=== PATIENT | male | born 1980 ===

== ENCOUNTER 2016-11-13 07:48 | Emergency (ER) | payer OTHER ==
[2016-11-13 07:53] VITALS: BP 117/70
[2016-11-13 07:54] VITALS: BMI 30.9
[2016-11-13 08:01] VITALS: RESP 20; O2SAT 98
--- NOTE | 2016-11-13 08:08 | ED PDOC ---
Lower Extremity Pain/Injury Time Seen by Provider: 11/13/16 07:52 Chief Complaint (Nursing): Lower Extremity Problem/Injury Chief Complaint (Provider): Knee pain History Per: Patient History/Exam Limitations: no limitations Onset/Duration Of Symptoms: Days (1.5 weeks) Current Symptoms Are (Timing): Still Present Additional Complaint(s): Pt. with a small area of redness and pain on the left knee where he had surgery for a ligament repair. Pt. states no dc. Ambulated with no issues. Dr. Garcia did surgery Oct 11. Denies any numbness, tingles, weakness, new injury. No chest pain, dyspnea. No fever. Able to walk with no issues. Past Medical History Reviewed: Nursing Documentation, Vital Signs Vital Signs: Last Vital Signs Temp 97.1 F L 11/13/16 07:59 Pulse 60 11/13/16 07:59 Resp 20 11/13/16 07:59 BP 117/70 11/13/16 07:59 Pulse Ox 98 11/13/16 07:59 - Medical History PMH: No Chronic Diseases - Surgical History Other surgeries: ligament repair L knee - Family History Family History: States: Unknown Family Hx - Living Arrangements Living Arrangements: With Family - Social History Current smoker - smoking cessation education provided: No Alcohol: None Drugs: Denies - Immunization History Hx Tetanus Toxoid Vaccination: No Hx Influenza Vaccination: No Hx Pneumococcal Vaccination: No - Home Medications Home Medications: Ambulatory Orders Medication Instructions Recorded Cephalexin [cephalexin] 500 mg PO QID 7 Days 11/13/16 - Allergies Allergies/Adverse Reactions: Allergies Allergy/AdvReac Type Severity Reaction Status Date / Time No Known Allergies Allergy Verified 11/13/16 07:59 Review of Systems ROS Statement: Except As Marked, All Systems Reviewed And Found Negative Musculoskeletal: Negative for: Neck Pain, Shoulder Pain, Back Pain Physical Exam - Reviewed Nursing Documentation Reviewed: Yes Vital Signs Reviewed: Yes - Physical Exam Appears: Positive for: Non-toxic, No Acute Distress Head Exam: Positive for: ATRAUMATIC, NORMAL INSPECTION, NORMOCEPHALIC Skin: Negative for: Pallor ENT: Positive for: Normal ENT Inspection Neck: Positive for: Normal, Painless ROM Cardiovascular/Chest: Positive for: Regular Rate, Rhythm Respiratory: Positive for: CNT, Normal Breath Sounds Back: Positive for: Normal Inspection. Negative for: L CVA Tenderness, R CVA Tenderness Extremity: Positive for: Normal ROM, Tenderness (mild left medial knee with 0.5 cm diameter erythema with scabbing in center; mild tender; no dc; no fluctuance ; not blanching; at site of arthroscope entry.). Negative for: Pedal Edema Neurologic/Psych: Positive for: Alert, Oriented - Laboratory Results Result Diagrams: 11/13/16 08:20 11/13/16 08:20 - ECG O2 Sat by Pulse Oximetry: 98 Pulse Ox Interpretation: Normal - Progress ED Course And Treament: 826: Stable. Spoke with Dr. Garcia. Wants blood work and will see pt. in the ER for eval. 1150: Dr. Mar tapped pt. knee. He reviewed the labs from tap. Pt. to be dc with keflex and fu with him. Disposition - Clinical Impression Clinical Impression: Cellulitis - Patient ED Disposition Is Patient to be Admitted: No Counseled Patient/Family Regarding: Studies Performed, Diagnosis, Need For Followup, Rx Given - Disposition Referrals: Ady Mar MD [Staff Provider] - 11/14/16 Disposition: Routine/Home Disposition Time: 12:00 Condition: STABLE Additional Instructions: Return if not better in 3 days. Prescriptions: Cephalexin [cephalexin] 500 mg PO QID 7 Days Instructions: Cellulitis (ED) Forms: [employer] (Kyrgyz) Print Language: GABONESE
[2016-11-13] MEDS ORDERED: Sodium Chloride 0.9% 500 ML IV STA (08:09)
[2016-11-13 08:14] VITALS: PULSE 72
[2016-11-13 08:28] LABS: BASO % 0.5 % (0.0-2.0); EOS # 0.1 K/uL (0.0-0.7); EOS % 1.2 % (0.0-4.0); HEMATOCRIT 40.5 % (35.0-51.0); LYMPH # 1.9 K/uL (1.0-4.3); LYMPH % 36.3 % (20.0-40.0); MEAN CELL VOLUME 90.8 fl (80.0-94.0); MEAN CORPUSCULAR HEMOGLOBIN 29.9 pg (27.0-31.0); MEAN CORPUSCULAR HGB CONC 32.9 g/dL (33.0-37.0); MEAN PLATELET VOLUME 8.4 fl (7.2-11.7); MONO # 0.4 K/uL (0.0-0.8); MONO % 7.6 % (0.0-10.0); NEUT # 2.8 K/uL (1.8-7.0); NEUT % 54.4 % (50.0-75.0); WHITE BLOOD COUNT 5.2 K/uL (4.8-10.8)
[2016-11-13 08:38] LABS: ALB/GLOB RATIO 1.5 (1.0-2.1); ALKALINE PHOSPHATASE 84 U/L (38-126); ALT/SGPT 59 U/L (21-72); AST/SGOT 25 U/L (17-59); BILIRUBIN,TOTAL 0.9 mg/dl (0.2-1.3); BLOOD UREA NITROGEN 16 mg/dl (9-20); CALCIUM 9.2 mg/dL (8.4-10.2); CARBON DIOXIDE 24 mmol/L (22-30); CHLORIDE 106 mmol/L (98-107); GFR AFRICAN-AMERICAN > 60; GLUCOSE,RANDOM 99 mg/dL (75-110); POTASSIUM 3.7 MMOL/L (3.6-5.0); SODIUM 140 mmol/l (132-148); TOTAL PROTEIN 7.1 G/DL (6.3-8.2)
[2016-11-13 09:51] LABS: FLUID TYPE SYNOVIAL FLUID
[2016-11-13 10:48] LABS: FLUID TYPE SYNOVIAL FLUID
[2016-11-13 12:46] VITALS: TEMP 98
--- NOTE | 2016-11-13 23:12 | CON ---
DATE: 11/13/2016 HISTORY OF PRESENT ILLNESS: The patient is a 36-year-old male who underwent left knee arthroscopy by me about a month ago on his left side. The patient was sent with concern of knee infections by physical therapist. He is examined by me at bedside, not in distress. Denies any fever or chills. Denies any limitation with range of motion. Denies any active wound drainage. Denies any paresthesia or motor weakness. Denies any trauma or fall. PHYSICAL EXAMINATION: Examination of patient's left knee, there is a trace effusion, range of motion from 0-120. There is no active wound drainage. There is a small area of folliculitis around the lateral portal site without any active drainage. Neurovascularly intact distally. PROCEDURE: The patient was informed about risk and benefits of the knee aspiration which he agreed to. The skin was draped and prepped in standard sterile manner. Afterwards using sterile technique, an 18 gauge needle was placed in superolateral pouch and about 10 mL of clear synovial fluid was aspirated, which was sent to pathology for cell count, Gram stains and culture. The patient tolerated the procedure well. LAB RESULTS: The patient's white cell count of synovial fluid was negative for any evidence of infection. ASSESSMENT AND PLAN: A 36-year-old male 4 weeks status post left knee arthroscopy, partial meniscectomy with superficial folliculitis. TREATMENT: I informed the patient about the lab results which are negative for any signs of infection. The patient is given p.o. antibiotics. He will continue physical therapy and see me in my office in 2 weeks. Ady Mar MD
== END 2016-11-13 12:46 | disposition home or self-care (01) ==
LOC: H.ER 07:48
DX: L03.116 Cellulitis of left lower limb (principal)
CPT/HCPCS: 80053; 82945; 84157; 85025; 85610; 85730; 87015; 87040; 87070; 87075; 87101; 87116; 87206; 89051; 96374; 99284; J1885; J7040